=== PATIENT | male | born 1955 | race Caucasian/White ===

== ENCOUNTER 2018-07-07 12:10 | Emergency (ER) | payer MEDICAID, MEDICARE, OTHER ==
[2018-07-07] MEDS ORDERED: HYDROmorphone 1 MG/ML Syringe IVPUSH ONE (14:12)
[2018-07-07 14:39] VITALS: BP 131/76
--- NOTE | 2018-07-07 15:31 | EDM.PDOC ---
ED HPI GENERAL MEDICAL PROBLEM - General Chief Complaint: Back Pain or Injury Stated Complaint: MEDICAL VIA NORTH Time Seen by Provider: 07/07/18 14:08 Source of Information: Reports: Patient History Limitations: Reports: No Limitations - History of Present Illness INITIAL COMMENTS - FREE TEXT/NARRATIVE: This gentleman has metastatic prostate cancer as had been having a lot of problems with bone pain. He's followed at the [facility] but does not have a local doctor. He's medicated with Dilaudid 2 mg every 4 hours and says that just isn' t holding the pain. This morning he was hurting so badly that he was unable to get out of his recliner. EMS was called they picked him up they gave 2 mg of Dilaudid IV in route to the hospital. That gave good temporary pain relief. Middle Back Pain Score (Numeric/FACES): 3 - Related Data Allergies Allergy/AdvReac Type Severity Reaction Status Date / Time clindamycin Allergy Chest Pain Verified 07/07/18 12:20 Home Meds: Home Meds Lisinopril 10 mg PO DAILY 02/17/15 [History] Calcium Carbonate/Vitamin D3 [Calcium 250+D] 2 tab PO BID 07/07/18 [History] Chlorhexidine Gluconate 0.12% [Peridex 0.12% Rinse] 1 dose FLUSH BID 07/07/18 [ History] Dexamethasone 4 mg PO DAILY 07/07/18 [History] HYDROmorphone [Dilaudid] 2 mg PO Q4H PRN 07/07/18 [History] atorvaSTATin [Lipitor] 20 mg PO DAILY 07/07/18 [History] Past Medical History HEENT History: Reports: Cataract Cardiovascular History: Reports: High Cholesterol, Hypertension Other Gastrointestinal History: elevated lft Genitourinary History: Reports: Other (See Below) Other Genitourinary History: prostate CA Other Musculoskeletal History: bone mets hips shoulder spine Oncologic (Cancer) History: Reports: Bone, Prostate Other Dermatologic History: thrush - Infectious Disease History Infectious Disease History: Reports: Chicken Pox, Other (See Below) Other Infectious Disease History: staph infection in knee - Past Surgical History HEENT Surgical History: Reports: Cataract Surgery, Other (See Below) Other HEENT Surgeries/Procedures: Jaw surgery - tooth pulled, woudn't heal so removed 2/3 of jaw bone GI Surgical History: Reports: Colonoscopy Male Surgical History: Reports: Prostate Biopsy Musculoskeletal Surgical History: Reports: Shoulder Surgery Other Musculoskeletal Surgeries/Procedures:: dislocated bilat hips Social & Family History - Tobacco Use Smoking Status *Q: Current Every Day Smoker Years of Tobacco use: 50 Packs/Tins Daily: 1 Month/Year Tobacco Last Used: June - Caffeine Use Caffeine Use: Reports: Coffee - Alcohol Use Days Per Week of Alcohol Use: 3 Number of Drinks Per Day: 2 Total Drinks Per Week: 6 - Recreational Drug Use Recreational Drug Use: No ED ROS GENERAL - Review of Systems Review Of Systems: See Below Constitutional: Reports: No Symptoms HEENT: Reports: No Symptoms Respiratory: Reports: No Symptoms Cardiovascular: Reports: No Symptoms Endocrine: Reports: No Symptoms GI/Abdominal: Reports: No Symptoms : Reports: No Symptoms ED EXAM,LOWER BACK PAIN/INJURY - Physical Exam Exam: See Below Exam Limited By: No Limitations General Appearance: Alert, WD/WN, Moderate Distress, Other (Patient is complaining of a great deal of pain.) Eye Exam: Bilateral Eye: Normal Inspection Throat/Mouth: Normal Inspection Respiratory/Chest: No Respiratory Distress Cardiovascular: Regular Rate, Rhythm Extremities: Normal Inspection Neurological: Alert, Normal Mood/Affect Psychiatric: Normal Affect Skin Exam: Warm, Dry Course - Vital Signs Last Recorded V/S: Last Vital Signs Temp 36.3 C 07/07/18 12:33 Pulse 74 07/07/18 14:08 Resp 16 07/07/18 14:08 BP 131/76 07/07/18 14:08 Pulse Ox 97 07/07/18 14:08 - Orders/Labs/Meds Meds: Medications Discontinued Medications Generic Name Dose Route Start Last Admin Trade Name Lyudmila PRN Reason Stop Dose Admin Hydromorphone HCl 2 mg 07/07/18 14:12 07/07/18 14:24 Dilaudid IVPUSH 07/07/18 14:13 2 mg ONETIME ONE Administration - Re-Assessments/Exams Free Text/Narrative Re-Assessment/Exam: 07/07/18 15:28 This gentleman was given Dilaudid 2 mg IV. This gave good pain relief. I discussed the use of opiates and cancer pain and explained to him how he needs to adjust the dose as needed to keep the pain under control. Because today is a national holiday I don't think there is any chance of talking to anybody at the [facility] in [place]. Putting him on a long-acting opiate or something like a fentanyl patch would be a good idea however will at the [facility] people worry about that. Departure - Departure Time of Disposition: 15:29 Disposition: Home, Self-Care 01 Condition: Fair Clinical Impression: Cancer related pain - Discharge Information Referrals: PCP,None [Primary Care Provider] - Additional Instructions: Increase the hydromorphone dose as needed. The first change would be to go up to 4 mg and see how long that dose lasts. It may last for just 4 hours or it may even last 6. Be sure to take the next dose before the previous dose wears off completely. Contact your Dr. about making changes to the medications. This medication will cause sedation if you take too much so just be careful with it
== END 2018-07-07 15:50 | disposition home or self-care (01) ==
LOC: JP.ED 12:10
DX: G89.3 Neoplasm related pain (acute) (chronic) (principal); C41.9 Malignant neoplasm of bone and articular cartilage, unspecified; C79.82 Secondary malignant neoplasm of genital organs; E78.00 Pure hypercholesterolemia, unspecified; F17.210 Nicotine dependence, cigarettes, uncomplicated; I10 Essential (primary) hypertension; Z79.899 Other long term (current) drug therapy; Z88.1 Allergy status to other antibiotic agents
CPT/HCPCS: 96374; 99283; J1170

== ENCOUNTER 2018-08-23 08:58 | Emergency (ER) | payer MEDICARE, OTHER ==
--- NOTE | 2018-08-23 10:18 | EDM.PDOC ---
ED HPI GENERAL MEDICAL PROBLEM - General Chief Complaint: General Stated Complaint: FALL VIA NORTH Time Seen by Provider: 08/23/18 09:55 Source of Information: Reports: Patient, Family, Provider, RN Notes Reviewed History Limitations: Reports: No Limitations - History of Present Illness INITIAL COMMENTS - FREE TEXT/NARRATIVE: 63-year-old gentleman presents to emergency department day complaint of shortness of breath, he arrives via EMS services he has a known history of prostate cancer with metastases to bone currently on chemotherapy was sitting in his recliner was slumped over in his recliner this was witnessed by his he fell out of his recliner landing on a carpeted floor was unresponsive after the fall started to respond when he was rolled on his back and EMS services were present. At this time he states he does get a little short of breath however is denying any pain he does have some abrasions on his forehead and nose however describes no pain with palpation to that area. Initially he had refused evaluation and treatment at this facility [facility] contact the MOD security solutions engineer at the [facility] in [place] they declined acceptance until he has been evaluated they felt they could not provide services for him after possible trauma. I discussed this with the patient he is agreement to evaluation and treatment at this time - Related Data Allergies Allergy/AdvReac Type Severity Reaction Status Date / Time clindamycin Allergy Chest Pain Verified 08/23/18 09:16 Home Meds: Home Meds Lisinopril 10 mg PO DAILY 02/17/15 [History] Calcium Carbonate/Vitamin D3 [Calcium 250+D] 2 tab PO BID 07/07/18 [History] Chlorhexidine Gluconate 0.12% [Peridex 0.12% Rinse] 1 dose FLUSH BID 07/07/18 [ History] Dexamethasone 4 mg PO DAILY 07/07/18 [History] HYDROmorphone [Dilaudid] 2 mg PO Q4H PRN 07/07/18 [History] atorvaSTATin [Lipitor] 20 mg PO DAILY 07/07/18 [History] Past Medical History HEENT History: Reports: Cataract Cardiovascular History: Reports: High Cholesterol, Hypertension Other Gastrointestinal History: elevated lft Genitourinary History: Reports: Other (See Below) Other Genitourinary History: prostate CA Other Musculoskeletal History: bone mets hips shoulder spine Oncologic (Cancer) History: Reports: Bone, Prostate Other Dermatologic History: thrush - Infectious Disease History Infectious Disease History: Reports: Chicken Pox, Other (See Below) Other Infectious Disease History: staph infection in knee - Past Surgical History HEENT Surgical History: Reports: Cataract Surgery, Other (See Below) Other HEENT Surgeries/Procedures: Jaw surgery - tooth pulled, woudn't heal so removed 2/3 of jaw bone GI Surgical History: Reports: Colonoscopy Male Surgical History: Reports: Prostate Biopsy Musculoskeletal Surgical History: Reports: Shoulder Surgery Other Musculoskeletal Surgeries/Procedures:: dislocated bilat hips Social & Family History - Tobacco Use Smoking Status *Q: Current Every Day Smoker Years of Tobacco use: 50 Packs/Tins Daily: 1 - Caffeine Use Caffeine Use: Reports: Coffee ED ROS GENERAL - Review of Systems Review Of Systems: See Below Constitutional: Denies: Fever, Chills, Weakness HEENT: Reports: No Symptoms Respiratory: Reports: Shortness of Breath Cardiovascular: Reports: No Symptoms GI/Abdominal: Reports: No Symptoms : Reports: No Symptoms Musculoskeletal: Reports: Back Pain (Chronic) Skin: Reports: Bruising, Wound Neurological: Reports: No Symptoms ED EXAM, GENERAL - Physical Exam Exam: See Below Free Text/Narrative:: General: Male, not in any distress, alert and oriented x3 HEENT: head is superficial abrasion appreciated on the forehead and a small laceration across the bridge of the nose there is no tenderness to palpation across the forehead or bridge of nose normocephalic, eyes pupils equal round reactive to light, sclera clear no conjunctivitis appreciated extraocular eye movements intact. Ears tympanic membranes clear and boone landmarks and light reflex are present bilaterally canals are clear. Nose no septal deviation, nares are clear, no blood present. Mouth mucosa is dry and pink no erythema or exudate noted in soft palate, tongue is midline uvula is midline, dentition is intact. Neck: Supple no thyromegaly no tracheal deviation. Nodes: Cervical nodes subclavicular nodes nontender no palpable lymphadenopathy noted. Lungs: Coarse breath sounds with rhonchi mid to lower lung chiang bilaterally crackles in the bases CV: Regular rate and rhythm S1 and S2 appreciated no murmurs rubs or gallops noted. Abdomen: Soft, obese, nontender, no palpable masses or organomegaly appreciated , no distention no guarding bowel sounds are present, Neuro: Cranial nerves II through XII intact, GCS of 15 Skin: Multiple bruising with ecchymosis is appreciated on the abdomen several days old Extremities: +2 pitting edema bilaterally, pedal pulse is +2. Course - Vital Signs Last Recorded V/S: Last Vital Signs Temp 98.1 F 08/23/18 09:26 Pulse 103 H 08/23/18 09:40 Resp 18 08/23/18 09:40 BP 88/48 L 08/23/18 09:40 Pulse Ox 94 L 08/23/18 09:40 - Orders/Labs/Meds Orders: Active Orders 24 hr Category Date Time Status Cardiac Monitoring [RC] .As Directed Care 08/23/18 10:10 Active Cardiac Monitoring [RC] STAT Care 08/23/18 11:47 Active Communication Order [RC] Per Unit Routine Care 08/23/18 11:47 Active Communication Order [RC] Per Unit Routine Care 08/23/18 11:47 Active EKG Documentation Completion [RC] ASDIRECTED Care 08/23/18 10:12 Active Oxygen Therapy [RC] ASDIRECTED Care 08/23/18 11:47 Active Heparin Sodium/D5W [Heparin 25,000 Units in D5W 500 ML] Med 08/23/18 12:00 Active 25,000 units in 500 ml IV TITRATE Iopamidol [Isovue-370 (76%)] Med 08/23/18 12:45 Active 100 ml IV . DIRECTED Lactated Ringers [Ringers, Lactated] 1,000 ml Med 08/23/18 10:15 Active IV ASDIRECTED Sodium Chloride 0.9% [Normal Saline] 100 ml Med 08/23/18 12:45 Active IV ASDIRECTED EKG 12 Lead [EK] Stat Ther 08/23/18 10:11 Ordered Medication Orders Lactated Ringer's (Ringers, Lactated) 1,000 mls @ 999 mls/hr IV ASDIRECTED BRYN Last Admin: 08/23/18 12:09 Dose: 999 mls/hr Infusion: 08/23/18 12:09 Dose: 999 mls/hr Admin: 08/23/18 11:45 Dose: 999 mls/hr Heparin Sodium/Dextrose (Heparin 25,000 Units In D5w 500 Ml) 25,000 units in 500 mls @ 27.433 mls/hr IV TITRATE BRYN; Protocol Last Admin: 08/23/18 13:28 Dose: 12 units/kg/hr, 27.433 mls/hr Sodium Chloride (Normal Saline) 100 mls @ 3 mls/sec IV ASDIRECTED BRYN Last Admin: 08/23/18 13:20 Dose: 3 mls/sec Iopamidol (Isovue-370 (76%)) 100 ml IV . DIRECTED BRYN Last Admin: 08/23/18 13:20 Dose: 100 ml Labs: Laboratory Tests 08/23/18 08/23/18 08/23/18 Range/Units 09:45 09:45 09:45 WBC 18.1 H (4.5-11.0) K/uL RBC 4.75 (4.30-5.90) M/uL Hgb 15.1 H (12.0-15.0) g/dL Hct 46.9 (40.0-54.0) % MCV 99 H (80-98) fL MCH 32 H (27-31) pg MCHC 32 (32-36) % Plt Count 169 (150-400) K/uL Add Manual Diff Yes Neutrophils % (Manual) 90 H (36-66) % Band Neutrophils % 8 (5-11) % Monocytes % (Manual) 2 (2-6) % Sodium 145 (140-148) mmol/L Potassium 1.6 L* (3.6-5.2) mmol/L Chloride 89 L (100-108) mmol/L Carbon Dioxide 47 H (21-32) mmol/L Anion Gap 10.6 (5.0-14.0) mmol/L BUN 49 H D (7-18) mg/dL Creatinine 1.6 H D (0.8-1.3) mg/dL Est Cr Clr Drug Dosing 44.53 mL/min Estimated GFR (MDRD) 44 L (>60) Glucose 139 H (74-106) mg/dL Lactic Acid 4.0 H (0.4-2.0) mmol/L Calcium 9.5 (8.5-10.1) mg/dL Total Bilirubin 1.9 H D (0.2-1.0) mg/dL AST 76 H D (15-37) U/L ALT 188 H (12-78) U/L Alkaline Phosphatase 233 H (46-116) U/L CK-MB (CK-2) 3.7 H (0-3.6) mg/mL Troponin I 0.605 H* (0.000-0.056) ng/mL NT-Pro-B Natriuret Pep 3987 H (5-125) pg/mL Total Protein 6.0 L (6.4-8.2) g/dL Albumin 2.7 L (3.4-5.0) g/dL Globulin 3.3 (2.3-3.5) g/dL Albumin/Globulin Ratio 0.8 L (1.2-2.2) Meds: Medications Generic Name Dose Route Start Last Admin Trade Name Lyudmila PRN Reason Stop Dose Admin Lactated Ringer's 1,000 mls @ 999 mls/hr 08/23/18 10:15 08/23/18 12:09 Ringers, Lactated IV 999 mls/hr ASDIRECTED BRYN Administration Heparin Sodium/Dextrose 25,000 units in 500 mls @ 27.433 mls/hr 08/23/18 12: 00 08/23/18 13:28 Heparin 25,000 Units In D5w 500 Ml IV 12 units/kg/hr TITRATE BRYN 27.433 mls/hr Administration Protocol 12 UNITS/KG/HR Sodium Chloride 100 mls @ 3 mls/sec 08/23/18 12:45 08/23/18 13:20 Normal Saline IV 3 mls/sec ASDIRECTED BRYN Administration Iopamidol 100 ml 08/23/18 12:45 08/23/18 13:20 Isovue-370 (76%) IV 100 ml . DIRECTED BRYN Administration Discontinued Medications Generic Name Dose Route Start Last Admin Trade Name Lyudmila PRN Reason Stop Dose Admin Aspirin 324 mg 08/23/18 11:47 08/23/18 12:05 Aspirin PO 08/23/18 11:48 324 mg ONETIME ONE Administration Clopidogrel Bisulfate 300 mg 08/23/18 11:47 08/23/18 12:06 Plavix PO 08/23/18 11:48 300 mg ONETIME ONE Administration Heparin Sodium (Porcine) 4,000 units 08/23/18 11:47 08/23/18 12:07 Heparin Sodium IVPUSH 08/23/18 11:48 4,000 units ONETIME ONE Administration Potassium Chloride 20 meq/ 112 mls @ 56 mls/hr 08/23/18 12:00 08/23/18 13:30 Lidocaine HCl 2 ml/ Sodium IV 08/23/18 13:59 56 mls/hr Chloride ONETIME ONE Administration Sodium Chloride 10 ml 08/23/18 12:36 08/23/18 13:20 Saline Flush FLUSH 08/23/18 12:37 10 ml ONETIME ONE Administration - Re-Assessments/Exams Free Text/Narrative Re-Assessment/Exam: 08/23/18 12:12 Initially called discussed case with Dr. Bianchi IN MOD at 1145 MOD [facility] is not appropriate care for this gentleman recommended transfer to higher level of care. Called and discussed the case with Dr. Dobbins at 1210 after reviewing labs consideration of pulmonary embolism before transfer therefore CT scan [place] chest was ordered in the meantime is currently being treated for non-STEMI with aspirin Plavix and heparin pending results of CT scan at which time transfer will be coordinated Departure - Departure Time of Disposition: 14:26 Disposition: DC/Tfer to Acute Hospital 02 Condition: Poor Clinical Impression: Non-ST elevation myocardial infarction (NSTEMI) - Discharge Information Referrals: PCP,None [Primary Care Provider] - Forms: ED Department Discharge - My Orders Last 24 Hours: My Active Orders 08/23/18 10:10 Cardiac Monitoring [RC] .As Directed 08/23/18 10:11 EKG 12 Lead [EK] Stat 08/23/18 10:12 EKG Documentation Completion [RC] ASDIRECTED 08/23/18 10:15 Lactated Ringers [Ringers, Lactated] 1,000 ml IV ASDIRECTED 08/23/18 11:47 Cardiac Monitoring [RC] STAT Communication Order [RC] Per Unit Routine Communication Order [RC] Per Unit Routine Oxygen Therapy [RC] ASDIRECTED 08/23/18 12:00 Heparin Sodium/D5W [Heparin 25,000 Units in D5W 500 ML] 25,000 units in 500 ml IV TITRATE 08/23/18 12:45 Iopamidol [Isovue-370 (76%)] 100 ml IV . DIRECTED Sodium Chloride 0.9% [Normal Saline] 100 ml IV ASDIRECTED - Assessment/Plan Last 24 Hours: My Active Orders 08/23/18 10:10 Cardiac Monitoring [RC] .As Directed 08/23/18 10:11 EKG 12 Lead [EK] Stat 08/23/18 10:12 EKG Documentation Completion [RC] ASDIRECTED 08/23/18 10:15 Lactated Ringers [Ringers, Lactated] 1,000 ml IV ASDIRECTED 08/23/18 11:47 Cardiac Monitoring [RC] STAT Communication Order [RC] Per Unit Routine Communication Order [RC] Per Unit Routine Oxygen Therapy [RC] ASDIRECTED 08/23/18 12:00 Heparin Sodium/D5W [Heparin 25,000 Units in D5W 500 ML] 25,000 units in 500 ml IV TITRATE 08/23/18 12:45 Iopamidol [Isovue-370 (76%)] 100 ml IV . DIRECTED Sodium Chloride 0.9% [Normal Saline] 100 ml IV ASDIRECTED Plan: Assessment Acuity = acute Site and laterality = non-ST elevation myocardial infarction comp came the patient with known history of prostate cancer with metastases to the bone Etiology = probable underlying coronary artery disease Manifestations = dyspnea Location of injury = Home Lab values = WBC elevated 18.1 consistent leukocytosis, potassium low at 1.6 consistent hypokalemia creatinine elevated 1.6 consistent with acute renal failure stage G IIIB lactic acid elevated 4.0 consistent lactic acidosis total bilirubin elevated 1.9 consistent hyperbilirubinemia AST elevated 76 ALTs elevated 188 consistent elevated liver enzymes troponin elevated 0.605 probably related to non-ST myocardial infarction BNP elevated 3897 consistent fluid overload type pattern EKG shows sinus rhythm with no ST elevation she does have ST depressions in V4 as well as PVCs, chest x-ray shows cardiomegaly CT scan of the chest reveals no pulmonary embolism however he does have groundglass appearance in the upper lobes of uncertain significance Plan Call discussed case with Dr. Douglass [facility] kindly accepted the patient in transport he'll be transported via EMS ground he has received aspirin , Plavix 300 mg, 4000 unit bolus of heparin and will be initiated on a heparin drip in route he is remained chest pain-free while in the emergency department This note was dictated using [email or web address] voice recognition software please call with any questions on syntax or grammar.
[2018-08-23] MEDS ORDERED: Potassium Chloride 20 MEQ in Premix Bag 1 BAG IV ONE ×2 (10:53→15:40)
[2018-08-23] MEDS: Lactated Ringers 1,000 ML IV SCH ×2 (11:45→12:09)
[2018-08-23] MEDS ORDERED: Heparin Sodium 5,000 Units/ML Vial IVPUSH ONE (11:47)
[2018-08-23] MEDS ORDERED: Aspirin 81 MG Tab.Chew PO ONE (11:47)
[2018-08-23] MEDS ORDERED: Clopidogrel 75 MG Tab PO ONE (11:47)
--- NOTE | 2018-08-23 11:54 | CRLCR ---
HISTORY: Shortness of breath. FINDINGS: PA and lateral view of the chest is provided. The lung volumes appear slightly diminished but grossly clear. No findings for pleural effusion or pneumothorax. Cardiac silhouette size appears mildly enlarged. IMPRESSION: No findings for pneumonia or congestive heart failure. Cardiac silhouette size is marginally enlarged. Dictated by Jose Martin Torres MD @ Aug 23 2018 11:48AM Signed by Dr. Jose Martin Torres @ Aug 23 2018 11:52AM
[2018-08-23] MEDS ORDERED: Heparin Sodium/D5W 25,000 UNITS/500 ML BAG IV SCH (12:00)
[2018-08-23] MEDS ORDERED: Potassium Chloride 20 MEQ, Lidocaine 1% 2 ML in Sodium Chloride 0.9% 100 ML IV ONE (12:00)
[2018-08-23] MEDS ORDERED: Sodium Chloride 0.9% 10 ML Syringe FLUSH ONE (12:36)
[2018-08-23] MEDS ORDERED: Iopamidol 755 Mg/ML 100 ML Bottle IV SCH (12:45)
[2018-08-23] MEDS ORDERED: Sodium Chloride 0.9% 100 ML IV SCH (12:45)
--- NOTE | 2018-08-23 14:08 | CRLCT ---
INDICATION: HYPOXIC. HISTORY OF PROSTATE CANCER. TECHNIQUE : CT scan of the chest. CTA PE protocol. IV contrast. IV CONTRAST: ISOVUE 370 100 ML Please note that all CT scans at this facility use dose modulation, iterative reconstruction and/or weight-based dosing when appropriate to reduce radiation dose to as low as reasonably achievable(ALARA). COMPARISON: No comparison chest CTA. Chest radiographs earlier on 08/23/2018. FINDINGS: Vp Site CT images: Calcified gallstone in the right upper abdomen. Patchy reticular opacities in the right upper lung zone are suspected. Heart and mediastinal contours within normal limits. Pulmonary arteries: Main pulmonary artery normal in caliber. No focal pulmonary artery filling defects. Thoracic aorta: Thoracic aorta is normal in caliber. No dissection. Heart and mediastinum: Minimal calcified coronary artery disease, including left main coronary artery, series 6, image 69. Heart size normal. No pericardial effusion. No pathologically enlarged mediastinal or hilar lymph nodes. Lungs and pleura: Patchy ground-glass opacities in the bilateral upper lobes. Lesser degree of involvement involving superior segments of right and left lower lobes. No cavitary nodules, pneumothorax, or pleural effusions. Chest wall and soft tissues: Chest wall soft tissues unremarkable. Thyroid gland: 8 mm hypodense right thyroid nodule on series 6, image 15. Upper abdomen: Large calcified gallstone, measuring 3.4 cm on series 6, image 154. Bilateral adrenal gland thickening, likely due to underlying adrenal hyperplasia. Splenic size is normal. No hydronephrosis involving the visualized kidneys. Pancreas unremarkable. Bones: Numerous sclerotic osseous metastases in the thorax. IMPRESSION: 1. No acute pulmonary embolism, thoracic aortic aneurysm or dissection. 2. Bilateral ground-glass opacities involving the upper lobes and to a lesser degree superior segments of bilateral lower lobes. Findings are nonspecific, and may include atypical infection. If the patient is immunocompromised, pneumocystis pneumonia included in differential. Less likely differential includes pulmonary edema or possible hypersensitivity pneumonitis. 3. Numerous sclerotic osseous metastases of the thorax with clinical history of prostate cancer. 4. Cholelithiasis. Dictated by Shadi Bernstein MD @ 08/23/2018 2:07:26 PM Please note that all CT scans at this facility use dose modulation, iterative reconstruction, and/or weight-based dosing when appropriate to reduce radiation dose to as low as reasonably achievable. Dictated by: Shadi Bernstein MD @ 08/23/2018 14:07:39 (Electronically Signed)
[2018-08-23 15:06] VITALS: BP 157/93
[2018-08-23] MEDS ORDERED: Potassium Chloride 20 MEQ, Lidocaine 1% 2 ML in Sodium Chloride 0.9% 100 ML IV SCH (16:00)
== END 2018-08-23 17:18 ==
LOC: JP.ED 08:58
DX: I21.4 Non-ST elevation (NSTEMI) myocardial infarction (principal); E78.00 Pure hypercholesterolemia, unspecified; I10 Essential (primary) hypertension; F17.210 Nicotine dependence, cigarettes, uncomplicated; Z88.1 Allergy status to other antibiotic agents; Z79.899 Other long term (current) drug therapy
CPT/HCPCS: 36415; 71046; 71275; 80053; 82553; 83605; 83880; 84132; 84484; 85025; 93005; 96361; 96374; 96376; 99285; A9270; J1644; J2001; J3480; J7030; J7120; Q9967